=== PATIENT | female | born 1965 | race Caucasian/White ===

== ENCOUNTER 2020-05-02 09:30 | Outpatient (CLI) | payer OTHER | END 2020-05-02 23:59 | disposition home or self-care (01) | LOC: CFH 09:30 | PROVIDERS: ATTEND Student in an Organized Health Care Education/Training Program | DX: Z12.2 Encounter for screening for malignant neoplasm of respiratory organs (principal); Z87.891 Personal history of nicotine dependence | CPT/HCPCS: 71271 ==